=== PATIENT | male | born 1965 | race Caucasian/White ===

== ENCOUNTER 2018-01-17 18:03 | Emergency (ER) | payer OTHER ==
--- NOTE | 2018-01-17 18:23 | EDPHY ---
H & P Time Seen by Provider: 01/17/18 18:08 HPI/ROS: CHIEF COMPLAINT: Rapid heart rate HISTORY OF PRESENT ILLNESS: At 5:45 a.m. Today the patient was at home and suddenly noticed his heart rate become very fast. He said it was quite rapid and regular and associated with being dizzy and slightly short of breath. When I evaluate him he says symptoms have mostly resolved. Was severe, not associated with chest pain or actual syncope. Not better worse with anything. Lasted about 10-15 minutes. REVIEW OF SYSTEMS: Eye: no change in vision ENT: no sore throat Cardiac: HPI Pulmonary: no cough or SOB Abdomen: no vomiting, diarrhea, abdominal pain Musculoskeletal: Patient has been having several months of intermittent low back pain right greater than left with intermittent right leg numbness. Not currently present. Skin: no rash Neuro: no headache Constitutional: no fever : no urinary symptoms A comprehensive 10 point review of systems is otherwise negative aside from elements mentioned in the history of present illness. PAST MEDICAL HISTORY: Diabetes and hypertension. Headache cardiac catheterization 4 months ago in [place] which was negative per patient report, that was done because he had dizziness at the time. Social history: Tobacco smoker, does drive a lot, recently moved from [place] 2 months ago. Does not drink alcohol. General Appearance: Alert and conversant, cooperative. Eyes: No scleral icterus. ENT, Mouth: Normal mucous membranes. Respiratory: Normal respiratory effort, breath sounds equal, lungs are clear to auscultation. Cardiovascular: Regular rate and rhythm. No murmur auscultated. Gastrointestinal: Abdomen is soft and non tender. Neurological: Alert, face symmetric, normal motor and sensory in extremities. Skin: Warm and dry, no rashes. Musculoskeletal: No peripheral edema. No calf tenderness. Psychiatric: Not agitated. Emergency Department course/MDM: Patient presents in sinus rhythm. He has been out of his metformin for 24 hr, he takes 500 mg p.o. Twice daily. Unlikely to have acute coronary syndrome with negative cardiac catheterization 4 months ago. Placed on a monitor, EKG and chest x-ray and labs to include D-dimer with recent travel and electrolytes. 1848: Labs reviewed include include 125 and D-dimer 0.33. Low pretest probability for pulmonary embolism, I think this makes venous thromboembolism very unlikely. Monitor strips also reviewed at this time do not show any tachy dysrhythmias. Reviewed with the patient could be SVT or atrial fibrillation or panic attack or other. Patient has had panic attacks and anxiety before, he tells me at this time he thinks that could have been the problem. At this time I think that most appropriate course of action is to get the patient prescription for his metformin to last until his Thursday primary care appointment, cardiology referral for possible Holter monitor as an outpatient. 1927: Results reviewed, no dysrhythmia in ED, stable for discharge. Follow up outpatient discussed with the patient. Smoking Status: Current every day smoker Constitutional: Initial Vital Signs Temperature (C) 36.7 C 01/17/18 18:05 Heart Rate 88 01/17/18 18:05 Respiratory Rate 18 01/17/18 18:05 Blood Pressure 134/84 H 01/17/18 18:05 O2 Sat (%) 95 01/17/18 18:05 O2 Delivery Mode Room Air Allergies/Adverse Reactions: No Known Allergies Allergy (Unverified 01/17/18 18:04) Home Medications: Medication Instructions Recorded Lisinopril 01/17/18 Metformin HCl 01/17/18 Metoprolol Succinate 01/17/18 metFORMIN HCL [Metformin HCl] 500 mg PO Q12 #6 01/17/18 Medical Decision Making - Diagnostics EKG Interpretation: 12-lead EKG interpreted by me; official reading is in computer system. My interpretation is sinus rhythm rate 86, normal intervals. Imaging Results: Imaging Impressions Chest X-Ray 01/17/18 18:21 Impression: There is no acute intrathoracic abnormality. Imaging: I viewed and interpreted images myself Differential Diagnosis: Differential considered including but not limited to ventricular tachycardia, SVT, atrial fibrillation, pulmonary embolism. - Data Points Laboratory Results: Laboratory Results 01/17/18 18:13 01/17/18 18:13 01/17/18 01/17/18 01/17/18 18:16 18:13 18:13 WBC RBC Hgb Hct MCV MCH MCHC RDW Plt Count MPV Neut % (Auto) Lymph % (Auto) [place] % (Auto) Eos % (Auto) Baso % (Auto) Nucleat RBC Rel Count Absolute Neuts (auto) Absolute Lymphs (auto) Absolute Monos (auto) Absolute Eos (auto) Absolute Basos (auto) Absolute Nucleated RBC Immature Gran % Immature Gran # D-Dimer 0.33 ug/mLFEU ug/mLFEU (0.00-0.50) Sodium 140 mEq/L mEq/L (135-145) Potassium 4.1 mEq/L mEq/L (3.3-5.0) Chloride 102 mEq/L mEq/L (97-110) Carbon Dioxide 25 mEq/l mEq/l (22-31) Anion Gap 13 mEq/L mEq/L (8-16) BUN 17 mg/dL mg/dL (7-23) Creatinine 0.9 mg/dL mg/dL (0.7-1.3) Estimated GFR > 60 Glucose 125 mg/dL H mg/dL (70-100) Calcium 9.7 mg/dL mg/dL (8.5-10.4) POC Troponin I 0.00 ng/mL ng/mL (0.00-0.08) 01/17/18 18:13 WBC 11.42 10^3/uL H 10^3/uL (3.80-9.50) RBC 5.73 10^6/uL 10^6/uL (4.40-6.38) Hgb 16.7 g/dL g/dL (13.7-17.5) Hct 49.2 % % (40.0-51.0) MCV 85.9 fL fL (81.5-99.8) MCH 29.1 pg pg (27.9-34.1) MCHC 33.9 g/dL g/dL (32.4-36.7) RDW 12.9 % % (11.5-15.2) Plt Count 264 10^3/uL 10^3/uL (150-400) MPV 10.0 fL fL (8.7-11.7) Neut % (Auto) 51.2 % % (39.3-74.2) Lymph % (Auto) 38.6 % % (15.0-45.0) [place] % (Auto) 7.7 % % (4.5-13.0) Eos % (Auto) 1.8 % % (0.6-7.6) Baso % (Auto) 0.4 % % (0.3-1.7) Nucleat RBC Rel Count 0.0 % % (0.0-0.2) Absolute Neuts (auto) 5.86 10^3/uL 10^3/uL (1.70-6.50) Absolute Lymphs (auto) 4.41 10^3/uL H 10^3/uL (1.00-3.00) Absolute Monos (auto) 0.88 10^3/uL H 10^3/uL (0.30-0.80) Absolute Eos (auto) 0.20 10^3/uL 10^3/uL (0.03-0.40) Absolute Basos (auto) 0.04 10^3/uL 10^3/uL (0.02-0.10) Absolute Nucleated RBC 0.00 10^3/uL 10^3/uL (0-0.01) Immature Gran % 0.3 % % (0.0-1.1) Immature Gran # 0.03 10^3/uL 10^3/uL (0.00-0.10) D-Dimer Sodium Potassium Chloride Carbon Dioxide Anion Gap BUN Creatinine Estimated GFR Glucose Calcium POC Troponin I Medications Given: Discontinued Medications Metformin HCl (Glucophage) 1,000 mg PO ONCE ONE Stop: 01/17/18 20:11 Last Admin: 01/17/18 20:21 Dose: 1,000 mg Point of Care Test Results: Chemistry 01/17/18 18:16 POC Troponin I 0.00 ng/mL ng/mL (0.00-0.08) Departure - Departure Disposition: Home, Routine, Self-Care Clinical Impression: Palpitations Condition: Good Instructions: Heart Palpitations (ED) Referrals: Harley Fagan MD [Medical Doctor] - 2-3 days without fail Prescriptions: metFORMIN HCL [Metformin HCl] 500 mg PO Q12 #6
--- NOTE | 2018-01-17 18:24 | CPEKG ---
Test Reason : OPEN Blood Pressure : / mmHG Vent. Rate : 086 BPM Atrial Rate : 078 BPM P-R Int : 133 ms QRS Dur : 095 ms QT Int : 331 ms P-R-T Axes : 063 077 -06 degrees QTc Int : 396 ms Sinus rhythm Confirmed by Faheem Garner ([id number]) on 01/17/2018 6:23:32 PM Referred By: Confirmed By:Faheem Garner
[2018-01-17 18:35] LABS: PLATELET COUNT 264 10^3/uL (150-400)
[2018-01-17] MEDS ORDERED: metFORMIN HCL 500 MG TAB PO ONE (20:10)
[2018-01-17 20:22] VITALS: BP 128/82
== END 2018-01-17 20:23 | disposition home or self-care (01) ==
DX: R00.2 Palpitations (principal); R42 Dizziness and giddiness; I10 Essential (primary) hypertension; E11.9 Type 2 diabetes mellitus without complications; F17.200 Nicotine dependence, unspecified, uncomplicated; Z79.899 Other long term (current) drug therapy
CPT/HCPCS: 84484-PO